=== PATIENT | male | born 1980 | race Hispanic/Latino ===

== ENCOUNTER 2018-08-09 08:17 | Observation (INO) | payer OTHER ==
[2018-08-08 17:03] LABS: Absolute Lymphocytes (CBC) 2.5 K/uL (0.7-4.9); Basophils % 0.7 % (0-1.3); Hematocrit 45.2 % (39.6-49.0); Lymphocytes % 21.5 % (15.3-44.8); MPV 7.7 fL (7.6-11.3); RBC Red Blood Cell Count 5.15 M/uL (4.33-5.43)
[2018-08-08 17:09] LABS: Potassium 4.4 mmol/L (3.5-5.1)
--- OUTSIDE RECORDS SUMMARY | 2018-08-09 08:20 | XMS REPORT | Clinical Summary ---
:1980 Author Organization [facility] Address [address] [place] [id number] Care Team Providers Name Role Phone Sharpsid Primary Care Provider Allergies Active Allergy Reactions Severity Noted Date Comments Ibuprofen Other (See Comments) Medium 06/08/2016 Iodine And Iodide Containing Other (See Comments) Medium 06/08/2016 Products Medications Medication Sig Dispensed Refills Start Date End Date Status cholecalciferol (VITAMIN Take 2 Units by 0 Active D3) 1,000 unit tablet mouth daily. omega-3 fatty Take 1 capsule 0 Active acids-vitamin E 1,000 mg by mouth. Cap Active Problems Problem Noted Date Acute nonintractable headache, unspecified headache type 06/08/2016 Family History Medical History Relation Name Comments Diabetes Father Heart disease Father Heart disease Maternal Grandfather Stroke Maternal Grandfather Diabetes Maternal Grandmother Hypertension Maternal Grandmother Hypertension Mother Heart disease Paternal Grandfather Cancer Paternal Grandmother Relation Name Status Comments Father Alive Maternal Grandfather Maternal Grandmother Mother Alive Paternal Grandfather Paternal Grandmother Social History Tobacco Use Types Packs/Day Years Used Date Never Smoker Alcohol Use Drinks/Week oz/Week Comments Yes 1-2 Cans of beer 0.6 - 1.2 very occassionally ( once or twice a year Sex Assigned at Date Recorded Not on file Job Start Date Occupation Industry Not on file Not on file Not on file Travel History Travel Start Travel End No recent travel history available. Last Filed Vital Signs Not on file Plan of Treatment Not on file Results Not on fileafter 08/08/2017 Insurance Payer Benefit Plan / Group Subscriber ID Type Phone Address PENDING [facility] ADMIT Advance Directives For more information, please contact:[address] [phone] Code Status Date Activated Date Inactivated Comments Full Code 06/09/2016 12:22 AM 06/10/2016 3:37 AM This code status was determined by: Patient
--- OUTSIDE RECORDS SUMMARY | 2018-08-09 08:20 | XMS REPORT ---
:1980 [facility] Address [address] [place] [id number] Care Team Providers Name Role Phone ETHEL VALDEZ Unavailable Unavailable Problems This patient has no known problems. Allergies, Adverse Reactions, Alerts This patient has no known allergies or adverse reactions. Medications This patient has no known medications. Results Test Description Test Time Test Comments Text Results Atomic Results Result Comments RAPID DRUG SCREEN, URINE 2016-06-09 08:03:00 Test Item Value Reference Range Comments BARBITURATE URINE (BEAKER) (test jiyb=322) Negative Negative BENZODIAZEPINE SCREEN URINE (BEAKER) (test wwci=975) Negative Negative COCAINE (METAB.) SCREEN (BEAKER) (test fhde=9388) Negative Negative METHADONE SCREEN (BEAKER) (test afee=2475) Negative Negative OPIATE SCREEN URINE (BEAKER) (test zfxq=698) Positive Negative CANNABINOID SCREEN URINE (BEAKER) (test sqko=415) Negative Negative AMPH/METHAMPH SCREEN (BEAKER) (test dpzo=2963) Negative Negative PHENCYCLIDINE SCREEN URINE (BEAKER) (test loez=819) Negative Negative OXYCODONE SCREEN URINE (BEAKER) (test gtrj=7908) Negative Negative DRUG CUTOFF CONC.Cocaine 300 ng/mL Cannabinoid 50 ng/mL Benzodiazepine 200 ng/mLBarbiturate 200 ng/ mLPhencyclidine 25 ng/mLOpiate 300 ng/mLMethadone 300 ng/mLAmphetamine/ 1000 ng/mL MethamphetamineOxycodone 300 ng/mLLIPID [id number] 05:45:00 Test Item Value Reference Range Comments TRIGLYCERIDES (BEAKER) (test eqvh=547) 57 mg/dL CHOLESTEROL (BEAKER) (test qvqi=032) 117 mg/dL HDL CHOLESTEROL (BEAKER) (test fzky=465) 32 mg/dL LDL CHOLESTEROL CALCULATED (BEAKER) (test 74 mg/dL rftn=151) Triglyceride Reference Range: Low Risk <150 Borderline 150- 199 High Risk 200-499 Very High Risk >=500Cholesterol Reference Range: Low Risk <200 Borderline 200-239 High Risk > 240HDL Cholesterol Reference Range: Low Risk >=60 High Risk <40LDL Cholesterol Reference Range: Optimal <100 Near Optimal 100-129 Borderline 130-159 High 160-189 Very High >=190CBC W/PLT COUNT & AUTO [id number] 21:21:00 Test Item Value Reference Range Comments WHITE BLOOD CELL COUNT (BEAKER) (test isnj=221) 9.9 K/ L 4.0-10.0 RED BLOOD CELL COUNT (BEAKER) (test acys=521) 4.80 M/ L 4.20-5.80 HEMOGLOBIN (BEAKER) (test xoem=328) 15.0 GM/DL 13.0-16.8 HEMATOCRIT (BEAKER) (test lmvu=800) 43.6 % 40.0-50.0 MEAN CORPUSCULAR VOLUME (BEAKER) (test kmsm=470) 90.7 fL 82.0-98.0 MEAN CORPUSCULAR HEMOGLOBIN (BEAKER) (test 31.3 pg 27.0-33.0 funp=970) MEAN CORPUSCULAR HEMOGLOBIN CONC (BEAKER) (test 34.5 GM/DL 32.0-36.0 wppb=838) RED CELL DISTRIBUTION WIDTH (BEAKER) (test 11.5 % 10.3-14.2 ftmz=941) PLATELET COUNT (BEAKER) (test qgnd=507) 223 K/CU MM 150-430 MEAN PLATELET VOLUME (BEAKER) (test idmu=780) 7.6 fL 6.5-10.5 NUCLEATED RED BLOOD CELLS (BEAKER) (test 0 /100 WBC 0-0 ceyx=107) NEUTROPHILS RELATIVE PERCENT (BEAKER) (test 68 % qhcu=550) LYMPHOCYTES RELATIVE PERCENT (BEAKER) (test 24 % gszl=128) MONOCYTES RELATIVE PERCENT (BEAKER) (test 7 % utob=898) EOSINOPHILS RELATIVE PERCENT (BEAKER) (test 1 % qjcz=205) BASOPHILS RELATIVE PERCENT (BEAKER) (test 0 % vaao=686) NEUTROPHILS ABSOLUTE COUNT (BEAKER) (test 6.77 K/ L 1.80-8.00 lcne=324) LYMPHOCYTES ABSOLUTE COUNT (BEAKER) (test 2.37 K/ L 1.48-4.50 nfmw=417) MONOCYTES ABSOLUTE COUNT (BEAKER) (test 0.67 K/ L 0.00-1.30 ljzw=620) EOSINOPHILS ABSOLUTE COUNT (BEAKER) (test 0.09 K/ L 0.00-0.50 lmcv=110) BASOPHILS ABSOLUTE COUNT (BEAKER) (test 0.02 K/ L 0.00-0.20 fabq=788) 0.00CREATINE KINASE (CK), TOTAL AND [id number] 20:44:00 Test Item Value Reference Range Comments CREATINE KINASE TOTAL (BEAKER) (test ugaa=691) 230 U/L 29-200 CREATINE KINASE-MB (BEAKER) (test btfi=836) 1.6 ng/mL 0.0-6.6 CREATINE KINASE-MB INDEX (BEAKER) (test enus=244) 0.7 % Effective 12/25/2013: CK-MB Reference Range ChangeNew: 0.0-6.6 Previous: 0.0- 4.9CK-MB Reference Range:<6.7 Normal6.7-10.0 Borderline>10.0 AbnormalTROPONIN [id number] 20:44:00 Test Item Value Reference Range Comments TROPONIN I (BEAKER) (test xmix=347) < ng/mL 0.00-0.03 Effective 12/25/2013: Reference Range ChangeNew: 0.00-0.03 Previous 0.00- 0.15Troponin I (TnI) levels must be interpreted in the context of the presenting symptoms and the clinical findings. Elevated TnI levels indicate myocardial damage, but are not specific for ischemic heart disease. Elevated TnI levels are seen in patients with other cardiac conditions (including myocarditis and congestive heartfailure), and slight TnI elevations occur in patients with other conditions, including sepsis, renalfailure, acidosis, acute neurological disease, and persistent tachyarrhythmia.BASIC METABOLIC [id number] 20:39:00 Test Item Value Reference Range Comments SODIUM (BEAKER) (test 138 meq/L 136-145 buap=102) POTASSIUM (BEAKER) (test 3.7 meq/L 3.5-5.1 Specimen slightly afkv=924) hemolyzed CHLORIDE (BEAKER) (test 106 meq/L 98-107 fxce=461) CO2 (BEAKER) (test 21 meq/L 22-29 uaoa=900) BLOOD UREA NITROGEN 15 mg/dL 7-21 (BEAKER) (test awud=724) CREATININE (BEAKER) (test 1.12 mg/dL 0.57-1.25 Specimen slightly alec=723) hemolyzed GLUCOSE RANDOM (BEAKER) 102 mg/dL 70-105 (test zkiw=047) CALCIUM (BEAKER) (test 9.3 mg/dL 8.4-10.2 evmo=588) EGFR (BEAKER) (test mL/min/1.73 sq m INSUFFICIENT CLINICAL DATA yaie=2182) TO CALCULATE ESTIMATED GFR. [id number] 20:39:00 Test Item Value Reference Range Comments PROTIME (BEAKER) (test nhoa=882) 13.5 seconds 11.7-14.7 INR (BEAKER) (test fubn=443) 1.0 <=5.9 PARTIAL THROMBOPLASTIN TIME (BEAKER) (test 28.1 seconds 22.5-36.0 vkcj=522) RECOMMENDED COUMADIN/WARFARIN INR THERAPY RANGESSTANDARD DOSE: 2.0 - 3.0 Includes: PROPHYLAXIS forvenous thrombosis, systemic embolization; TREATMENT for venous thrombosis and/or pulmonary embolus.HIGH RISK: Target INR is 2.5-3.5 for patients with mechanical heart valves.
[2018-08-09] MEDS ORDERED: Ringers Lactate 1,000 ML IV ONE ×2 (09:00→14:25)
[2018-08-09] MEDS ORDERED: CEFAZOLIN/SWI 1gm 1 GM/10 ML SYR ONE (09:00)
[2018-08-09] MEDS ORDERED: BUPIVACAINE 0.5% PF 10 ML VIAL ONE (11:11)
[2018-08-09] MEDS ORDERED: FENTANYL CITR 100 MCG/2 ML ONE ×3 (11:31→13:28)
[2018-08-09] MEDS ORDERED: LIDOCAINE 1% MPF 5 ML VIAL ONE (11:31)
[2018-08-09] MEDS ORDERED: MIDAZOLAM HCL 2 MG/2 ML INJ ONE (11:31)
[2018-08-09] MEDS ORDERED: PROPOFOL 200 MG/20 ML VIAL IV ONE (11:31)
[2018-08-09] MEDS ORDERED: ONDANSETRON 4 MG/2 ML VIAL ONE (12:38)
[2018-08-09] MEDS ORDERED: ROCURONIUM 50 MG/5 ML VIAL IV ONE (13:07)
[2018-08-09] MEDS ORDERED: GLYCOPYRROLATE 0.2 MG/ML SYR ONE (13:52)
[2018-08-09] MEDS ORDERED: NEOSTIGMINE 1 MG/ML -10 ML VIAL ONE (13:52)
[2018-08-09] MEDS: HYDROMORPHONE HCL 2 MG/ML inj ONE ×4 (14:00→14:30)
[2018-08-09] MEDS ORDERED: PROMETHAZINE 25 MG/ML VIAL ONE (14:14)
[2018-08-09] MEDS ORDERED: ONDANSETRON 4 MG/2 ML VIAL IV PRN (14:19)
[2018-08-09] MEDS ORDERED: SUCCINYLCHOLINE 20 MG/ML (10 ML) IV ONE (14:20)
--- NOTE | 2018-08-09 14:46 | P.BOP ---
Preoperative diagnosis: Recurrent incarcerated left inguinal hernia ,morbid obesity Postoperative diagnosis: same Primary procedure: Open repair of Recurrent incarcerated left inguinal hernia Secondary procedure: Lysis of adhesiona, reduction of incarcerated sigmoi colon Other procedure(s): Partially removal of old mesh Estimated blood loss: <50cc Specimen: hernia sac Findings: incarcerated omentum, extensive adhesions. Anesthesia: General Complications: None Transferred to: Recovery Room Condition: Good
[2018-08-09] MEDS: CEFOXITIN/SWI 1gm 1 GM/10 ML SYR IVP SCH ×2 (15:42→17:51)
[2018-08-09] MEDS: NA CHLORIDE 0.9% 1,000 ML IV SCH (15:42)
[2018-08-09] MEDS ORDERED: CEFOXITIN 1 GM in NA CHLORIDE 0.9% 100 ML IVPB SCH (18:00)
[2018-08-09 19:39] VITALS: BMI 37.5
[2018-08-09] MEDS: MORPHINE 4 MG/ML SYR IV PRN (20:05)
[2018-08-09 23:31] LABS: Urine Appearance CLEAR; Urine Bilirubin NEGATIVE (NEG); Urine Blood NEGATIVE (NEG); Urine Color YELLOW; Urine Glucose NEGATIVE (NEG); Urine Protein NEGATIVE (NEG); Urine Specific Gravity 1.015 (1.005-1.030); Urine Urobilinogen 0.2 mg/dL (0.2-1.0); Urine pH 6.5 (5.0-7.0)
[2018-08-09 23:38] LABS: Urine Microscopic Reflex NO UMIC
[2018-08-10] MEDS: NA CHLORIDE 0.9% 1,000 ML IV SCH ×3 (00:11→21:43)
[2018-08-10] MEDS: CEFOXITIN/SWI 1gm 1 GM/10 ML SYR IVP SCH (00:11)
[2018-08-10] MEDS: MORPHINE 4 MG/ML SYR IV PRN (00:11)
[2018-08-10 04:37] LABS: Absolute Lymphocytes (CBC) 2.4 K/uL (0.7-4.9); Basophils % 0.2 % (0-1.3); Hematocrit 43.8 % (39.6-49.0); Lymphocytes % 13.4 % (15.3-44.8); MPV 7.9 fL (7.6-11.3); RBC Red Blood Cell Count 4.98 M/uL (4.33-5.43)
[2018-08-10 04:46] LABS: Potassium 4.6 mmol/L (3.5-5.1)
[2018-08-10] MEDS: HYDROCODONE/APAP 7.5/325 MG TAB PO PRN ×4 (05:24→21:59)
[2018-08-11] MEDS: HYDROCODONE/APAP 7.5/325 MG TAB PO PRN ×4 (03:56→17:11)
[2018-08-11] MEDS: NA CHLORIDE 0.9% 1,000 ML IV SCH (07:15)
[2018-08-11 09:47] VITALS: O2SAT 98
--- NOTE | 2018-08-11 15:48 | P.DS ---
Admission Date: 08/09/18 Discharge Date: 08/11/18 Disposition: ROUTINE DISCHARGE Discharge Condition: GOOD Hospital Course: unremarkable Vital Signs/Physical Exam: Temp Pulse Resp BP Pulse Ox 98.1 F 97 H 17 118/67 99 08/11/18 12:00 08/11/18 12:00 08/11/18 12:00 08/11/18 12:00 08/11/18 12:00 General: Alert, Oriented x3, Cooperative HEENT: PERRLA, EOMI Neck: Supple Respiratory: Normal air movement Cardiovascular: No edema, Normal pulses, Regular rate/rhythm Gastrointestinal: Soft and benign, No rebound, No guarding Musculoskeletal: No erythema, No tenderness, No warmth Integumentary: No rashes, No erythema, No warmth, No cyanosis Neurological: Normal speech Laboratory Data at Discharge: WBC 17.7 K/uL (4.3-10.9) H D 08/10/18 04:17 Hgb 14.5 g/dL (13.6-17.9) 08/10/18 04:17 Hct 43.8 % (39.6-49.0) 08/10/18 04:17 Plt Count 369 K/uL (152-406) 08/10/18 04:17 Sodium 140 mmol/L (136-145) 08/10/18 04:17 Potassium 4.6 mmol/L (3.5-5.1) 08/10/18 04:17 BUN 11 mg/dL (7-18) 08/10/18 04:17 Creatinine 1.26 mg/dL (0.55-1.3) 08/10/18 04:17 Glucose 117 mg/dL (74-106) H 08/10/18 04:17 Home Medications: Adp 1 tab PO DAILY 08/08/18 Asperagus Extract 1,000 mg PO DAILY 08/08/18 Bio Fcts 1 tab PO DAILY 08/08/18 Delinquent Account Clerk 1 tab PO DAILY 08/08/18 Ultra Vir-X 1 tab PO DAILY 08/08/18 Acetaminophen with Codeine [Tylenol with Codeine #4 Tablet] 1 each PO Q4H PRN # 30 tablet 08/11/18 New Medications: Acetaminophen with Codeine [Tylenol with Codeine #4 Tablet] 1 each PO Q4H PRN # 30 tablet PRN Reason: Pain Scale 5-7 (Moderate) Patient Discharge Instructions: may take shower with dressing off Diet: AHA Activity: No lifting more than 10 lbs Followup: Rodri Dukes MD [ACTIVE - CAN ADMIT] - 1 Week
[2018-08-11 17:00] VITALS: BP 126/72; TEMP 98.2
[2018-08-11] MEDS ORDERED: CIPROFLOXACIN HCL 500 MG TAB PO SCH (21:00)
--- NOTE | 2018-09-03 23:36 | OP ---
Date of Procedure: 08/09/2018 Surgeon: Rodri Dukes MD Preoperative Diagnoses: Recurrent incarcerated left inguinal hernia, morbid obesity. Postoperative Diagnoses: Recurrent incarcerated left inguinal hernia, morbid obesity. Procedure: Open repair of recurrent incarcerated left inguinal hernia with mesh, lysis of adhesions, reduction of incarcerated sigmoid colon, and partial removal of old mesh. Specimen: Hernia sac. Findings: Incarcerated omentum, incarcerated sigmoid colon, and extensive intraabdominal adhesions. Anesthesia: General plus local. Indications: This is the case of a male who comes to us, had a hernia repair not too long ago in [facility] institution. He noticed the hernia to be back again; had some CT scan done and found to have sigm oid resection in that area. The patient has put on some weight. He does not remember exactly what h appened to him, but he was fully explained the need of weight loss, but he has not been able to get t hat. We encouraged him to look for medical help and weight loss, but since the area is getting tende r, we could not wait until then and we have to do this urgently. The urgency comes from the fact anurag t the sigmoid colon is in that area and is tender, so we are afraid he may strangulate that colon. Yuriy aguilar understands the difficulty with repair in the sense of having previous surgeries. He may need more mesh, remove previous mesh, with the benefits, alternatives, and risks including, but not limited to infection, bleeding, damage to adjacent structures, anesthesia complications, recurrence, chronic nu mbness, chronic pain, RI, even . He also understands this may not relieve any symptoms; he migh t need more than one surgical intervention. He understands the pros and cons of mesh sheath. He was allowed to ask questions and they were answered to his satisfaction. He did allow me to use mesh. He was explained and stressed the importance of losing weight and no heavy lifting. He will do that as an outpatient. Description Of Procedure: The patient was brought to the operating room, placed in supine position, anesthesia was done without complication. The abdominal area was prepped and draped in a sterile fas hion. A time-out was called. Incision was made over the inguinal region. The scar tissues were imm ediately obtained. Kenneth fascia was opened. External oblique aponeurosis was opened in the directi on of its fiber making sure that the adhesions were removed carefully. Ilioinguinal nerve and iliohy pogastric nerves were identified and protected behind external oblique aponeurosis. There, we had th is large direct hernia present. Some of the mesh was attached to it. Sigmoid colon was present. We had to open the hernia sac. There were multiple adhesions of the sigmoid colon to the hernia sac an d they had to be carefully removed without any enterotomy. Once removed of all those adhesions, we w ere able to reduce the sigmoid colon back into the abdominal cavity. Some of the omentum had to be r emoved since it was coming through it and was not allowing reduction of that with some of the previou s mesh had to be removed, otherwise the intestines would not have been reduced. Once we inspected an d saw that was viable, we reduced that area. Then we proceeded to protect the spermatic cord. There were some structures that had been compressed with this hernia. Some of the spermatic cord structur es had scarring. The testicles were very small, looked like could be affected by this, it was hard t o say at this moment. The structures looked viable even with scarring. I was not sure how functiona l they were, but we protected in any way. We placed a mesh plug over the area of the defect, secured that in place, and repaired the floor of the canal with Prolene, making sure the nerves were protect ed at all times. After that, we brought the ilioinguinal nerve and iliohypogastric nerves back into the inguinal canal and reconstructed the external oblique aponeurosis with Prolene, making sure the n erves were not included in the closure. The area was irrigated. 3-0 chromic was used for the subcut aneous tissue and valentine for the skin. At the end of the case, the testicles were in the scrotum. Diagnoses: Recurrent incarcerated left inguinal hernia with incarcerated sigmoid colon, morbid obesi ty, intraabdominal adhesions. Procedures: Open repair of recurrent incarcerated left inguinal hernia with mesh, lysis of adhesions , reduction of incarcerated sigmoid colon, and partial removal of old mesh. Disposition: Home. Activity: As tolerated. No heavy lifting. Followup: Follow up in my office in 1 week. Call for appointment [phone]. Instructions: Keep the area dry for 48 hours, then may shower. Medications: See orders. HM/MODL Voice ID: [id number] Report ID: [id number]
== END 2018-08-11 17:48 | disposition home or self-care (01) ==
LOC: OR 08:17 → 2ND 14:45
PROVIDERS: ADMIT Surgery; ATTEND Surgery
PROC: 0YU60JZ Supplement Left Inguinal Region with Synthetic Substitute, Open Approach (ICD-10-PCS; principal; 2018-08-09 12:30)
DX: K40.31 Unilateral inguinal hernia, with obstruction, without gangrene, recurrent (principal); E66.01 Morbid (severe) obesity due to excess calories; Z68.37 Body mass index [BMI] 37.0-37.9, adult
CPT/HCPCS: 36415; 80048; 81003; 85025; 88302; 97163; G0378; J0330; J0690; J1170; J2250; J2405; J2550; J2704; J2710; J3010; J7030